=== PATIENT | female | born 1980 | race Caucasian/White ===

== ENCOUNTER 2022-04-13 09:59 | Outpatient (CLI) | payer BC ==
[2022-04-13 11:45] LABS: Hemoglobin 11.7 g/dL (12.0-15.5); Mean Corpuscular HGB CONC 31.9 g/dL (32.0-36.0); Mean Corpuscular Hemoglobin 25.8 pg (27.0-33.0); Mean Corpuscular Volume 80.8 fl (81.6-98.3); Mean Platelet Volume 10.6 fl (7.4-10.4); Platelet Count 340 10x3/uL (150-450); RBC Distribution Width 14.1 % (11.5-14.5); Red Blood Cell (RBC) Count 4.54 10x6/uL (3.90-5.03); White Blood Cell (WBC) Count 4.7 10x3/uL (3.5-10.5)
[2022-04-13 12:06] LABS: BHCG - Serum Negative (NEGATIVE); Pregs Control Background? CLEAR/WHITE (CLR/WHITE); Pregs Control Bar Appear? YES (CONTROL BAR)
== END 2022-04-13 10:00 | disposition home or self-care (01) ==
LOC: CSHLAB 09:59
PROVIDERS: ATTEND Obstetrics & Gynecology
DX: Z01.812 Encounter for preprocedural laboratory examination (principal); Z20.822 Contact with and (suspected) exposure to COVID-19; D25.9 Leiomyoma of uterus, unspecified
CPT/HCPCS: 84703; 85027; 86850; 86900; 86901; 87811

== ENCOUNTER 2022-04-18 08:22 | Day surgery (SDC) | payer BC ==
[2022-04-12 15:21] VITALS: BMI 36.3
[2022-04-13 11:45] LABS: Hemoglobin 11.7 g/dL (12.0-15.5); Mean Corpuscular HGB CONC 31.9 g/dL (32.0-36.0); Mean Corpuscular Hemoglobin 25.8 pg (27.0-33.0); Mean Corpuscular Volume 80.8 fl (81.6-98.3); Mean Platelet Volume 10.6 fl (7.4-10.4); Platelet Count 340 10x3/uL (150-450); RBC Distribution Width 14.1 % (11.5-14.5); Red Blood Cell (RBC) Count 4.54 10x6/uL (3.90-5.03); White Blood Cell (WBC) Count 4.7 10x3/uL (3.5-10.5)
[2022-04-13 12:06] LABS: BHCG - Serum Negative (NEGATIVE); Pregs Control Background? CLEAR/WHITE (CLR/WHITE); Pregs Control Bar Appear? YES (CONTROL BAR)
[~2022-04-18 08:22] MED LIST: VANCOMYCIN 2 GRAM/400 ML BAG 2 GM in Premix Bag 1 BAG IVPB SCH
[2022-04-18] MEDS ORDERED: Gabapentin 300 MG CAP ONE (08:42)
[2022-04-18] MEDS ORDERED: Famotidine/PF 20 mg/2ml Vial ONE (08:42)
[2022-04-18] MEDS ORDERED: CeleCOXIB 100 MG CAP ONE (08:42)
[2022-04-18] MEDS ORDERED: Bupivacaine PF 0.5% 30 ML VIAL ONE (10:00)
[2022-04-18] MEDS ORDERED: EPINEPHrine 1 MG/ML AMP ONE (10:00)
[2022-04-18] MEDS ORDERED: Midazolam HCl 2 mg/2 ml Vial ONE ×2 (10:17→10:24)
[2022-04-18] MEDS ORDERED: Lidocaine 4% PF 5 ML AMP ONE (10:24)
[2022-04-18] MEDS ORDERED: Glycopyrrolate 0.2 MG/ML 5 ML SYRINGE ONE (10:24)
[2022-04-18] MEDS ORDERED: Ketorolac Tromethamine 30 MG/ML VIAL ONE (10:24)
[2022-04-18] MEDS ORDERED: Fentanyl 250 MCG/5 ML VIAL ONE (10:24)
[2022-04-18] MEDS ORDERED: Rocuronium Bromide 10 MG/ML (10ML VIAL) ONE (10:24)
[2022-04-18] MEDS ORDERED: Lidocaine 1% PF 5 ML VIAL ONE (10:24)
[2022-04-18] MEDS ORDERED: PROPOFOL 20 ML ONE ×2 (10:24→11:08)
[2022-04-18] MEDS ORDERED: Ondansetron PF 4 MG/2 ML Vial ONE (10:24)
[2022-04-18] MEDS ORDERED: Dexamethasone 20 MG/5 ML VIAL ONE (10:25)
[2022-04-18] MEDS ORDERED: Ropivacaine 0.2% 550 ML 550 ML NERVE BLCK SCH (10:45)
== END 2022-04-18 16:00 | disposition home or self-care (01) ==
LOC: CSHSDC 08:22
PROVIDERS: ATTEND Obstetrics & Gynecology
PROC: 0UT74ZZ Resection of Bilateral Fallopian Tubes, Percutaneous Endoscopic Approach (ICD-10-PCS; principal; 2022-04-18)
PROC: 8E0W4CZ Robotic Assisted Procedure of Trunk Region, Percutaneous Endoscopic Approach (ICD-10-PCS; principal; 2022-04-18)
PROC: 0UT94ZZ Resection of Uterus, Percutaneous Endoscopic Approach (ICD-10-PCS; principal; 2022-04-18)
DX: D25.9 Leiomyoma of uterus, unspecified (principal); J45.909 Unspecified asthma, uncomplicated; E66.9 Obesity, unspecified; Z68.36 Body mass index [BMI] 36.0-36.9, adult; Z87.891 Personal history of nicotine dependence; Z79.890 Hormone replacement therapy; Z79.899 Other long term (current) drug therapy; Z91.048 Other nonmedicinal substance allergy status
CPT/HCPCS: 36415; 84703; 85027; 86850; 86900; 86901; 87811; 88307; A4306; J0171; J1100; J1885; J2250; J2405; J2704; J2795; J3010; J3370; S0020; S0028